=== PATIENT | male | born 1960 | race Caucasian/White ===

== ENCOUNTER → 2020-07-26 09:48 | Outpatient (CLI) | payer OTHER, SELFPAY ==
--- NOTE | 2020-07-26 | DI.RAD.S_ITS ---
PROCEDURE: XR HIP W PEL IF DONE LT 2V INDICATIONS: LEFT HIP PAIN TECHNIQUE: AP pelvis with lateral view(s) of the left hip(s). COMPARISON: None. FINDINGS: Bones: No fractures or dislocations. Pelvic ring appears intact. No suspicious bony lesions. Mild osseous hypertrophy noted in the hips bilaterally compatible with mild osteoarthritis. Soft tissues: The visualized bowel gas pattern is normal. No suspicious soft tissue calcifications. IMPRESSION: Mild bilateral hip osteoarthritis. Dictated by: Ching Holt MD, PhD on 07/26/2020 at 16:30 Approved by: Ching Holt MD, PhD on 07/26/2020 at 16:30
== END ==
PROVIDERS: PCP Physician Assistant Medical; Referring Provider Chiropractor; Visit Provider Chiropractor
DX: M25.552 Pain in left hip (principal); M16.0 Bilateral primary osteoarthritis of hip
CPT/HCPCS: 73502